=== PATIENT | female | born 1955 | race Caucasian/White ===

== ENCOUNTER 2016-12-25 07:25 | Emergency (ER) | payer OTHER ==
[2016-12-25 07:32] VITALS: TEMP 98.4; O2SAT 94
--- NOTE | 2016-12-25 07:43 | CPEKG ---
Heart Rate: 86 RR Interval: 698 P-R Interval: 176 QRSD Interval: 98 QT Interval: 348 QTC Interval: 417 P [place]: 58 QRS [place]: 56 T Wave [place]: -83 EKG Severity - NORMAL ECG - EKG Impression: SINUS RHYTHM Electronically Signed By: Annabelle Dick 25-Dec-2016 07:49:29
[2016-12-25] MEDS ORDERED: LORazepam 1 MG TAB PO ONE (08:03)
--- NOTE | 2016-12-25 08:08 | EDPHY ---
H & P Stated Complaint: Rapid Heart Beat/ Time Seen by Provider: 12/25/16 07:43 HPI/ROS: CHIEF COMPLAINT: Racing heart HISTORY OF PRESENT ILLNESS: This is a 60-year-old female with a history of hypertension and anxiety who presents to the emergency department after experiencing a racing heartbeat. She is prescribed Ativan 1 mg 3 times daily to use for anxiety and sleep. She receives 90 tablets per month. Her prescription is due to be refilled on the of this month, 4 days hence. She currently has 1 Ativan tablet left and has been taking 0.5 mg daily for at least the past 5 days, trying to stretch out her remaining pills. She admits that she has been taking more than the prescribed dosage. She attributes this to the fact that she was using Benadryl and an Afrin nasal spray to treat allergy symptoms related to her cats. She believes that these medications have made it more difficult her cysts for her to sleep, thus requiring more Ativan. Of note, she was admitted to this hospital almost exactly 1 year ago under similar circumstances. At that time she had an extensive cardiac workup including a normal nuclear stress test. She were Holter monitor after discharge. It was ultimately decided that her symptoms of heart palpitations and chest pressure were secondary to benzodiazepine withdrawal. She did have some ST depression on an initial EKG during that visit. This occurred in the setting of tachycardia in the 120s. She had a coronary angiogram performed about 10 years ago that showed a minimal LA D lesion. She currently takes amlodipine and metoprolol for hypertension. She denies chest pain or shortness of breath. She is not currently experiencing palpitations but felt them in the early hours of the morning and again when she awakened around 6 today. She last took Ativan around 10:00 p.m. last night, 0.5 mg. REVIEW OF SYSTEMS: A ten point review of systems was performed and is negative with the exception of the items mentioned in the HPI. Source: Patient Exam Limitations: No limitations - Personal History Current Tetanus/Diphtheria Vaccine: Yes Current Tetanus Diphtheria and Acellular Pertussis (TDAP): Yes - Medical/Surgical History Hx Asthma: Yes Hx Chronic Respiratory Disease: No Hx Diabetes: No Hx Cardiac Disease: No Hx Renal Disease: No Hx Cirrhosis: No Hx Alcoholism: No Hx HIV/AIDS: No Hx Splenectomy or Spleen Trauma: No Other PMH: 1. Hypertension. 2. Anxiety. 3. Insomnia. 4. Asthma-albuterol p.r.n. 5. Osteoarthritis involving her knees - Social History Smoking Status: Former smoker Drug Use: None Additional Social History: She lives alone. - Physical Exam Exam: General Appearance: Alert. Vital signs reviewed. Blood pressure 181/102 at triage, heart rate 105 at triage. Eyes: Pupils equal and round, no conjunctival injection, no discharge. Anicteric. ENT, Mouth: Mucous membranes are moist, no oropharyngeal erythema or edema. Neck: No lymphadenopathy, supple. No jugular venous distention. Respiratory: Lungs are clear to auscultation; no wheezes, rales, or rhonchi. Cardiovascular: Regular rate and rhythm; no murmur, rub, or gallop. Heart rate mid 80s at the time of my exam. Gastrointestinal: Abdomen is soft and nontender, no masses or organomegaly, bowel sounds normal. Skin: Warm and dry, no rashes on exposed skin, normal color. Back: Nontender to palpation over the thoracolumbar spine. No CVAT. Extremities: No lower extremity edema, no calf tenderness or swelling. Neurological: Alert and oriented. Moving all four extremities easily and equally. Psychiatric: Flat affect. Constitutional: Initial Vital Signs Temperature (C) 36.9 C 12/25/16 07:30 Heart Rate 105 H 12/25/16 07:30 Respiratory Rate 16 12/25/16 07:30 Blood Pressure 181/102 H 12/25/16 07:30 O2 Sat (%) 94 12/25/16 07:30 O2 Delivery Mode Room Air Allergies/Adverse Reactions: acetaminophen [From Percocet] Allergy (Verified 12/25/16 07:30) meperidine HCl [From Demerol] Allergy (Verified 12/31/15 04:00) morphine [Morphine] Allergy (Verified 12/31/15 04:00) oxycodone HCl [From Percocet] Allergy (Verified 12/25/16 07:30) Home Medications: Medication Instructions Recorded Acetaminophen [Tylenol 325mg (*)] 650 mg PO Q6 PRN #0 tab 12/31/15 Albuterol [Proventil Inhaler HFA 2 puffs IH Q2 PRN 12/31/15 (*)] Amitriptyline HCl [Elavil] 50 mg PO HS 12/31/15 Ibuprofen [Motrin (*)] 800 mg PO Q6 12/31/15 LORazepam [Ativan (*)] 1 mg PO Q6 PRN #10 tab 12/31/15 Metoprolol Succinate Xr [Toprol Xl 100 mg PO DAILY 12/31/15 100 mg (*)] amLODIPine BESYLATE [Norvasc 5 mg 5 mg PO DAILY 12/31/15 (*)] LORazepam [Ativan] 1 mg PO TID PRN #11 tab 12/25/16 Medical Decision Making - Diagnostics EKG Interpretation: 12 lead EKG is interpreted in [facility] View by emergency department physician. No acute ischemic changes. ED Course/Re-evaluation: 60-year-old female complaining of palpitations in the setting of markedly decreased dosage of her Ativan. I suspect benzodiazepine withdrawal. She is given 1 mg of Ativan orally in the emergency department. She is not currently experiencing palpitations and denies chest pain or shortness of breath. I spoke with her primary care physician, Dr. Thu Dunlap. She is aware of the fact that the patient has been over using her prescribed Ativan. We both agree that it is appropriate to write a prescription for enough Ativan to get her through until her prescription is refilled on Sunday. This will avoid benzodiazepine withdrawal. Dr. Dunlap will see her in the office. She will address the fact that Ms. Willis has been abusing her Ativan. Differential Diagnosis: I considered a differential diagnosis that includes but is not limited to benzodiazepine withdrawal, benzodiazepine abuse, tachyarrhythmia, dehydration, and drug-seeking. - Data Points Medications Given: Discontinued Medications Lorazepam (Ativan) 1 mg PO EDNOW ONE Stop: 12/25/16 08:04 Last Admin: 12/25/16 08:28 Dose: 1 mg Departure - Departure Disposition: Home, Routine, Self-Care Clinical Impression: Heart palpitations Condition: Good Instructions: Palpitations (ED) Additional Instructions: As you know, your racing heart is likely due to benzodiazepine withdrawal. I am writing a prescription for enough Ativan to get you through until Sunday when you will have your new prescription filled. I have spoken with Dr. Dunlap and she would like you to contact the office and schedule an appointment with her. Referrals: Rosanna Dunlap MD [Primary Care Provider] - As per Instructions Prescriptions: LORazepam [Ativan] 1 mg PO TID PRN #11 tab PRN Reason: Anxiety
[2016-12-25 08:52] VITALS: BP 138/72; PULSE 76; RESP 14
== END 2016-12-25 09:29 | disposition home or self-care (01) ==
DX: R00.2 Palpitations (principal); J45.909 Unspecified asthma, uncomplicated; I10 Essential (primary) hypertension; Z87.891 Personal history of nicotine dependence

== ENCOUNTER 2017-05-18 16:49 | Observation (INO) | payer OTHER ==
--- NOTE | 2017-05-18 17:07 | EDPHY ---
H & P Stated Complaint: cp, sob since yesterday--pt concerned could be related to anxiety HPI/ROS: HPI CHIEF COMPLAINT: Chest pain and shortness of breath HISTORY OF PRESENT ILLNESS: This patient is 61-year-old female, she has significant past medical history for hypertension, reactive airway disease and uses albuterol, significant osteoarthritis of her knees, she presents emergency room with chest pain or shortness of breath. She describes this chest pain is a pressure something sitting on the left side of her chest. She tells me this started around 4:00 a.m. yesterday. It has been persistent however it does wax and wane. She denies any nausea diaphoresis or pleuritic pain. She does get short of breath this. She went saw her primary care doctor today was referred to the emergency room for an abnormal EKG. Upon arrival here in emergency room she does complain of chest pressure 4/10 left-sided. Additionally tells me she short of breath. She does report to me she has no history of cardiac disease however she states she had a cardiac catheterization approximately 10 years ago with some plaque in 1 of her coronaries. Past Medical History: Hypertension, reactive airway disease, osteoarthritis Past Surgical History: Cardiac catheterization 10 years ago Social History: Denies daily use of drugs alcohol tobacco products. Family History: Noncontributory. ROS REVIEW OF SYSTEMS: A comprehensive 10 point review of systems is otherwise negative aside from elements mentioned in the history of present illness. Exam Constitutional appears well nontoxic triage nursing summary reviewed, vital signs reviewed, awake/alert. Eyes normal conjunctivae and sclera, EOMI, PERRLA. HENT normal inspection, atraumatic, moist mucus membranes, no epistaxis, neck supple/ no meningismus, no raccoon eyes. Respiratory clear to auscultation bilaterally, normal breath sounds, no respiratory distress, no wheezing. Cardiovascular rate normal, regular rhythm, no murmur, no edema, distal pulses normal. Gastrointestinal soft, non-tender, no rebound, no guarding, normal bowel sounds, no distension, no pulsatile mass. Genitourinary no CVA tenderness. Musculoskeletal no midline vertebral tenderness, full range of motion, no calf swelling, no tenderness of extremities, no meningismus, good pulses, neurovascularly intact. Skin pink, warm, & dry, no rash, skin atraumatic. Neurologic awake, alert and oriented x 3, AAOx3, moves all 4 extremities equally, motor intact, sensory intact, CN II-XII intact, normal cerebellar, normal vision, normal speech. Psychiatric normal mood/affect. Heme/Lymph/Immune no lymphadenopathy. Differential diagnosis includes but is not limited to: ACS, atypical chest pain , pneumothorax, pneumonia, pulmonary embolism, aortic dissection, congestive heart failure, tumor, musculoskeletal pain, esophageal pain, GERD, peptic ulcer disease, pancreatitis Medical Decision Making: Plan for this patient IV establishment, full-dose aspirin, nitroglycerin to see if this improves her chest pain, full youth nutritional monitor, EKG, rule out acute coronary syndrome. Re-evaluation: EKG interpretation by me on record in [employer] [facility] system. Impression time of EKG 17 11, this is sinus rhythm rate of 76, there abnormal T-wave inversions in V1 V2 V3. Slight ST depression V4 V5 V6. Motion artifact inferior leads. When I compare this EKG to her old EKG dated 12/25/2016 these T-waves are new. Also I compared her 12/31/2015 EKG. New T-wave inversions. 180: This patient was given nitroglycerin. This greatly improved her chest discomfort. Currently this time she has no chest pain. Repeat EKG at this time. EKG interpretation by me on record in [employer] system. Impression the time of EKG 18 16, this is sinus rhythm rate of 77, T-wave abnormalities noted again in V1 V2 V3. ST segment flattening V4 V5 V6. This EKG is obtained after nitroglycerin. It is not a normal EKG. This EKG is done when the patient has no chest pain. Plan for this patient given abnormal EKG and chest pain relieved by nitroglycerin the patient need to be admitted the hospitalist service for further characterization and cardiac chest pain rule out. There is no indication she is having acute STEMI at this time. No indication that she is having acute event. She has an abnormal EKG with chest pain. Relieved by nitro. Troponin is negative. ED x-ray chest one view: Negative for acute cardiopulmonary disease. 1828: Likely discussion with this patient she agrees for hospital admission for chest pain and abnormal EKG. Risk factors for cardiac disease include obesity, hypertension, age, immobility , chest pain relieved by nitroglycerin an abnormal EKG. Source: Patient - Personal History Current Tetanus/Diphtheria Vaccine: Unsure Current Tetanus Diphtheria and Acellular Pertussis (TDAP): Unsure - Medical/Surgical History Hx Asthma: Yes Hx Chronic Respiratory Disease: No Hx Diabetes: No Hx Cardiac Disease: No Hx Renal Disease: No Hx Cirrhosis: No Hx Alcoholism: No Hx HIV/AIDS: No Hx Splenectomy or Spleen Trauma: No Other PMH: 1. Hypertension. 2. Anxiety. 3. Insomnia. 4. Asthma-albuterol p.r.n. 5. Osteoarthritis involving her knees - Social History Smoking Status: Former smoker Constitutional: Initial Vital Signs Temperature (C) 37.1 C 05/18/17 16:56 Heart Rate 76 05/18/17 16:56 Respiratory Rate 16 05/18/17 16:56 Blood Pressure 146/80 H 05/18/17 16:56 O2 Sat (%) 98 05/18/17 16:56 O2 Delivery Mode Room Air Allergies/Adverse Reactions: acetaminophen [From Percocet] Allergy (Verified 12/25/16 07:30) meperidine HCl [From Demerol] Allergy (Verified 12/31/15 04:00) morphine [Morphine] Allergy (Verified 12/31/15 04:00) oxycodone HCl [From Percocet] Allergy (Verified 12/25/16 07:30) Home Medications: Medication Instructions Recorded Albuterol [Proventil Inhaler HFA 2 puffs IH Q2 PRN 12/31/15 (*)] Ibuprofen [Motrin (*)] 800 mg PO Q6 12/31/15 LORazepam [Ativan (*)] 1 mg PO Q6 PRN #10 tab 12/31/15 Metoprolol Succinate Xr [Toprol Xl 100 mg PO DAILY 12/31/15 100 mg (*)] amLODIPine BESYLATE [Norvasc 5 mg 5 mg PO DAILY 12/31/15 (*)] LORazepam [Ativan] 1 mg PO TID PRN #11 tab 12/25/16 Medical Decision Making - Diagnostics Imaging Results: Imaging Impressions Chest X-Ray 05/18/17 17:12 Impression: 1. No acute pulmonary disease. 2. Consider chest two views when the patient's medical condition permits. - Data Points Laboratory Results: Laboratory Results 05/18/17 17:15 05/18/17 17:15 08/11/17 08/11/17 08/11/17 17:15 17:15 17:15 WBC 8.11 10^3/uL 10^3/uL (3.80-9.50) RBC 4.74 10^6/uL 10^6/uL (4.18-5.33) Hgb 14.0 g/dL g/dL (12.6-16.3) Hct 40.0 % % (38.0-47.0) MCV 84.4 fL fL (81.5-99.8) MCH 29.5 pg pg (27.9-34.1) MCHC 35.0 g/dL g/dL (32.4-36.7) RDW 12.5 % % (11.5-15.2) Plt Count 254 10^3/uL 10^3/uL (150-400) MPV 9.9 fL fL (8.7-11.7) Neut % (Auto) 62.1 % % (39.3-74.2) Lymph % (Auto) 28.1 % % (15.0-45.0) Schleicher % (Auto) 7.4 % % (4.5-13.0) Eos % (Auto) 1.8 % % (0.6-7.6) Baso % (Auto) 0.2 % L % (0.3-1.7) Nucleat RBC Rel Count 0.0 % % (0.0-0.2) Absolute Neuts (auto) 5.03 10^3/uL 10^3/uL (1.70-6.50) Absolute Lymphs (auto) 2.28 10^3/uL 10^3/uL (1.00-3.00) Absolute Monos (auto) 0.60 10^3/uL 10^3/uL (0.30-0.80) Absolute Eos (auto) 0.15 10^3/uL 10^3/uL (0.03-0.40) Absolute Basos (auto) 0.02 10^3/uL 10^3/uL (0.02-0.10) Absolute Nucleated RBC 0.00 10^3/uL 10^3/uL (0-0.01) Immature Gran % 0.4 % % (0.0-1.1) Immature Gran # 0.03 10^3/uL 10^3/uL (0.00-0.10) PT 12.7 SEC SEC (12.0-15.0) INR 0.96 (0.83-1.16) APTT 25.9 SEC SEC (23.0-38.0) D-Dimer 0.30 ug/mLFEU ug/mLFEU (0.00-0.50) Sodium 139 mEq/L mEq/L (134-144) Potassium 3.7 mEq/L mEq/L (3.5-5.2) Chloride 104 mEq/L mEq/L (97-110) Carbon Dioxide 19 mEq/l L mEq/l (22-31) Anion Gap 16 mEq/L mEq/L (8-16) BUN 13 mg/dL mg/dL (7-23) Creatinine 0.7 mg/dL mg/dL (0.6-1.0) Estimated GFR > 60 Glucose 102 mg/dL H mg/dL (70-100) Calcium 10.9 mg/dL H mg/dL (8.5-10.4) Phosphorus 3.5 mg/dL mg/dL (2.5-4.5) Magnesium 2.1 mg/dL mg/dL (1.6-2.3) Total Bilirubin 0.7 mg/dL mg/dL (0.1-1.4) Conjugated Bilirubin 0.3 mg/dL mg/dL (0.0-0.5) Unconjugated Bilirubin 0.4 mg/dL mg/dL (0.0-1.1) AST 27 IU/L IU/L (14-46) ALT 41 IU/L IU/L (9-52) Alkaline Phosphatase 122 IU/L IU/L (38-126) Creatine Kinase 115 IU/L IU/L (0-156) CK-MB (CK-2) Fraction 2.45 ng/mL ng/mL (0-3.19) Troponin I < 0.012 ng/mL ng/mL (0-0.034) NT-Pro-B Natriuret Pep 77 pg/mL pg/mL (0-125) Total Protein 8.3 g/dL H g/dL (6.3-8.2) Albumin 5.2 g/dL H g/dL (3.5-5.0) Lipase 126.0 IU/L IU/L (23-300) Medications Given: Discontinued Medications Aspirin (Aspirin) 324 mg PO EDNOW ONE Stop: 05/18/17 17:13 Last Admin: 05/18/17 17:24 Dose: 324 mg Sodium Chloride (Ns) 1,000 mls @ 0 mls/hr IV EDNOW ONE; Wide Open PRN Reason: Protocol Stop: 05/18/17 17:13 Last Admin: 05/18/17 17:25 Dose: 1,000 mls Lorazepam (Ativan) 1 mg PO ONCE ONE Stop: 05/18/17 17:47 Last Admin: 05/18/17 17:51 Dose: 1 mg Nitroglycerin (Nitrostat) 0.4 mg SL EDNOW ONE Stop: 05/18/17 17:20 Last Admin: 05/18/17 17:24 Dose: 0.4 mg Departure - Departure Disposition: [facility] Inpatient Acute Clinical Impression: Chest pain Qualifiers: Chest pain type: unspecified Qualified Code(s): R07.9 - Chest pain, unspecified Condition: Fair
[2017-05-18] MEDS ORDERED: ASPIRIN 81 MG CHEWABLE TAB PO ONE (17:12)
[2017-05-18] MEDS ORDERED: NS 1,000 ML IV ONE (17:12)
--- NOTE | 2017-05-18 17:13 | CPEKG ---
Heart Rate: 76 RR Interval: 789 P-R Interval: 166 QRSD Interval: 98 QT Interval: 368 QTC Interval: 414 P [place]: 49 QRS [place]: 54 T Wave [place]: -36 EKG Severity - NORMAL ECG - EKG Impression: SINUS RHYTHM Electronically Signed By: Miguel Petty 18-May-2017 19:10:27
[2017-05-18] MEDS ORDERED: NITROGLYCERIN 0.4 MG BTL SL ONE (17:19)
[2017-05-18 17:32] LABS: % IMMATURE GRANULYOCYTES 0.4 % (0.0-1.1); ABSOLUTE IMMATURE GRANULOCYTES 0.03 10^3/uL (0.00-0.10); ADD DIFF? NO; ADD MORPH? NO; ADD SCAN? NO; ATYPICAL LYMPHOCYTE FLAG 0 (0-99); FRAGMENT RBC FLAG 0 (0-99); LEFT SHIFT FLG 0 (0-99); LIPEMIA HEMOLYSIS FLAG 90 (0-99); MEAN CELL HEMOGLOBIN 29.5 pg (27.9-34.1); MEAN CELL VOLUME 84.4 fL (81.5-99.8); MEAN PLATELET VOLUME 9.9 fL (8.7-11.7); PLATELET CLUMPS FLAG 0 (0-99); PLATELET COUNT 254 10^3/uL (150-400); RED BLOOD CELL COUNT 4.74 10^6/uL (4.18-5.33); RED CELL DISTRIBUTION WIDTH 12.5 % (11.5-15.2)
[2017-05-18] MEDS ORDERED: LORazepam 1 MG TAB PO ONE (17:46)
[2017-05-18 17:48] LABS: INR 0.96 (0.83-1.16); PROTIME(PATIENT) 12.7 SEC (12.0-15.0)
[2017-05-18 17:49] LABS: APTT 25.9 SEC (23.0-38.0)
[2017-05-18 17:56] LABS: ALANINE AMINOTRANSFERASE 41 IU/L (9-52); ALBUMIN 5.2 g/dL (3.5-5.0); ALKALINE PHOSPHATASE 122 IU/L (38-126); ANION GAP 16 mEq/L (8-16); ASPARTATE AMINOTRANSFERASE 27 IU/L (14-46); BILIRUBIN,TOTAL 0.7 mg/dL (0.1-1.4); BILIRUBIN-CONJUGATED 0.3 mg/dL (0.0-0.5); BILIRUBIN-UNCONJUGATED 0.4 mg/dL (0.0-1.1); CALCIUM 10.9 mg/dL (8.5-10.4); CARBON DIOXIDE 19 mEq/l (22-31); CHLORIDE 104 mEq/L (97-110); CREATININE 0.7 mg/dL (0.6-1.0); GLOMERULAR FILTRATION RATE > 60; GLUCOSE 102 mg/dL (70-100); MAGNESIUM 2.1 mg/dL (1.6-2.3); POTASSIUM 3.7 mEq/L (3.5-5.2); SODIUM 139 mEq/L (134-144); TOTAL PROTEIN 8.3 g/dL (6.3-8.2)
[2017-05-18 18:07] LABS: CREATINE KINASE-MB FRACTION 2.45 ng/mL (0-3.19); TROPONIN I < 0.012 ng/mL (0-0.034)
--- NOTE | 2017-05-18 18:19 | CPEKG ---
Heart Rate: 77 RR Interval: 779 P-R Interval: 196 QRSD Interval: 98 QT Interval: 380 QTC Interval: 431 P [place]: 51 QRS [place]: 48 T Wave [place]: -58 EKG Severity - NORMAL ECG - EKG Impression: SINUS RHYTHM Electronically Signed By: Miguel Petty 18-May-2017 19:10:27
[2017-05-18] MEDS ORDERED: ALBUTEROL 3 ML DEYVIAL IH PRN (20:00)
[2017-05-18] MEDS ORDERED: ONDANSETRON 4 MG/2 ML VIAL IVP PRN (20:00)
[2017-05-18] MEDS ORDERED: ONDANSETRON DISINTEGRATING 4 MG TAB PO PRN (20:00)
[2017-05-18] MEDS ORDERED: ACETAMINOPHEN 325 MG TAB PO PRN (20:00)
[2017-05-18] MEDS ORDERED: oxyCODONE IR 5 MG TAB PO PRN (20:00)
[2017-05-18] MEDS ORDERED: LORazepam 1 MG TAB PO PRN (20:02)
[2017-05-18] MEDS ORDERED: ALBUTEROL 200 PUFFS/18 GM MDI IH PRN (20:02)
[2017-05-18] MEDS: IBUPROFEN 800 MG TAB PO SCH (22:35)
--- NOTE | 2017-05-18 22:38 | GHP ---
[f rep st] HISTORY AND PHYSICAL DATE OF ADMISSION: 05/18/2017 CHIEF COMPLAINT: Chest pain. HISTORY: This is a 61-year-old female, past medical history that includes hypertension, severe anxi ety and reactive airways disease, presenting with left-sided chest pain that has been present since 4 AM yesterday. At the time of my evaluation, patient states she is "drugged," very sleepy and is h aving difficulty answering any questions. She asked me if we can talk tomorrow. Given her somnolen ce and her reluctance to participate in this history, the majority of history is obtained by wendie wood and discussion with ER physician. Apparently patient had been complaining of chest pain and p ressure on the left side of the chest that waxes and wanes and has no associated symptoms, including nausea or diaphoresis. Apparently she did have some shortness of breath. On review of her chart, she has had similar issues in the past and did have a nuclear stress test in December which was normal. PAST MEDICAL HISTORY: 1. Reactive airway disease. 2. Hypertension. 3. Anxiety with benzodiazepine dependence and prior issue of benzo withdrawal. 4. Osteoarthritis bilateral knees. 5. Nonobstructive coronary artery disease. 6. Diastolic dysfunction. 7. Hyperlipidemia. PAST SURGICAL HISTORY: Includes remote cardiac catheterization. SOCIAL HISTORY: Per chart review, patient is , is a nonsmoker, nondrinker, non drug user. FAMILY HISTORY: This was reviewed and is noncontributory. REVIEW OF SYSTEMS: 10-point review of systems obtained and negative, except as per HPI. It should be noted that this was limited by patient's reluctance to talk. MEDICATIONS: Include. 1. Metoprolol. 2. Ibuprofen. 3. Albuterol. 4. Lorazepam. 5. Amlodipine. ALLERGIES: Include oxycodone, morphine, meperidine. PHYSICAL EXAMINATION: VITAL SIGNS: Blood pressure 141/75, heart rate 79, respiratory rate 16, O2 s ats 94% on room air. Temperature is 36.7. GENERAL APPEARANCE: This is a somnolent female. She is arousable, but minimally interactive. EYES: Anicteric. HENT: Oropharynx clear. CARDIOVASCULAR: Regular rate and rhythm. No murmurs, rubs, or gallops. PULMONARY: CTA bilaterally. Normal work of breathing. ABDOMEN: Obese, soft, nontender. EXTREMITIES: No clubbing, cyanosis, or edema. S KIN: Warm, dry, well perfused. NEUROLOGIC/PSYCHIATRIC: Again, patient quite somnolent and states she is drugged and very sleepy. She is arousable, but very reluctant to participate in any sort of conversation. LABORATORY DATA: Labs reviewed. CBC is completely within normal limits. Coags and D-dimer are normal. Chemistry is notable for a b icarb of 19 with an anion gap of 16, glucose of 102, otherwise unremarkable. Chest x-ray, personally reviewed and interpreted, shows no acute disease. EKG, personally reviewed and interpreted, there is T-wave inversions V1, V2, V3 that are slightly mo re pronounced than prior. ASSESSMENT/PLAN: This is a 61-year-old female, past medical history of hypertension and anxiety, pr esenting with chest pain. 1. Chest pain. I was essentially unable to obtain a history from her; however, per report to the E R, this does sound to be atypical and has been present for greater than 24 hours without any enzyme elevation. Plan will be to monitor on telemetry with serial troponins and serial EKGs. We will obt ain a stress test in the morning. 2. Anxiety. The patient was given some Ativan in the Emergency Department and is now quite somnole nt. It does sound as if she has had many years of benzodiazepine dependence and has had issues with withdrawal in the past. Will have caution with benzos during this hospitalization. 3. Hypertension. Will continue her amlodipine and metoprolol. Blood pressure has been reasonable since admission. 4. Reactive airways disease without evidence of acute exacerbation. We will continue p.r.n. albute rol. 5. Chronic diastolic dysfunction without any evidence of decompensation. She appears euvolemic. W ill monitor. 6. Disposition. Observation status. I suspect she will need less than 48 hours stay for evaluatio n and management of above. 7. Patient is new to my care. Old records reviewed. Summary is as per HPI and past medical histor y. Care plan reviewed with ER physician, including plans for stress test in the morning. /[id number]/MODL
[2017-05-19 05:00] LABS: ANION GAP 11 mEq/L (8-16); CALCIUM 9.6 mg/dL (8.5-10.4); CARBON DIOXIDE 21 mEq/l (22-31); CHLORIDE 108 mEq/L (97-110); CREATININE 0.6 mg/dL (0.6-1.0); GLOMERULAR FILTRATION RATE > 60; GLUCOSE 76 mg/dL (70-100); POTASSIUM 3.5 mEq/L (3.5-5.2); SODIUM 140 mEq/L (134-144)
[2017-05-19 05:10] LABS: TROPONIN I < 0.012 ng/mL (0-0.034)
--- NOTE | 2017-05-19 06:28 | CPEKG ---
Heart Rate: 71 RR Interval: 845 P-R Interval: 173 QRSD Interval: 96 QT Interval: 380 QTC Interval: 413 P [place]: 71 QRS [place]: 61 T Wave [place]: -34 EKG Severity - OTHERWISE NORMAL ECG - EKG Impression: SINUS RHYTHM EKG Impression: VENTRICULAR PREMATURE COMPLEX Electronically Signed By: Cynthia Olmedo 21-May-2017 05:27:12
[2017-05-19] MEDS ORDERED: METOPROLOL SUCCINATE XR 100 MG TAB PO SCH (09:00)
[2017-05-19] MEDS: IBUPROFEN 800 MG TAB PO SCH (09:39)
[2017-05-19] MEDS ORDERED: REGADENOSON 0.4 MG/5 ML SYR IVP ONE (10:05)
--- NOTE | 2017-05-19 11:53 | CPR ---
[f rep st] NONINVASIVE CARDIAC PROCEDURE REPORT DATE OF PROCEDURE: 05/19/2017 PROCEDURE: Lexiscan nuclear stress test. INDICATION: The patient is a 61-year-old female, who presented to the hospital with complaints of s hortness of breath, chest discomfort, and abnormal EKG. Her risk factors for coronary artery diseas e include hypertension and prior tobacco use. She quit smoking 30 years ago. PROCEDURE IN DETAIL: Consent was obtained. The patient was placed on continuous telemetry. Her re sting EKG revealed normal sinus rhythm with heart rate of 70, SD interval 196, QRS duration of 88, a nd a QTc of 389. She has diffuse nonspecific ST-T wave changes. The patient was infused with Alicia can and complained of shortness of breath. She remained in normal sinus rhythm, but her heart rate did increase slightly to 97 beats per minute with the infusion. Her nonspecific ST-T wave changes w ere persistent throughout the study. Her blood pressure at rest was 128/70 and increased slightly w ith the infusion, and then returned to baseline. PLAN: Await nuclear images. /[id number]/MODL
[2017-05-19 11:59] VITALS: BP 129/77; PULSE 66; RESP 19; TEMP 98.5; O2SAT 98
--- NOTE | 2017-05-19 17:15 | GDS ---
[f rep st] DISCHARGE SUMMARY DISCHARGE DIAGNOSES: 1. Chest pain, thought nonischemic. 2. Reactive airways disease. 3. Hypertension. 4. Anxiety with benzodiazepine dependence. 5. Osteoarthritis. 6. Nonobstructive coronary disease. 7. Diastolic heart dysfunction. 8. Hyperlipidemia. HISTORY OF PRESENT ILLNESS: A 61-year-old female with multiple medical comorbidities, presenting wi th chest pain. For details of the patient's initial presentation, please see the history and physic al dated 05/18/2017. CONSULTATIVE SERVICES: Cardiology. PROCEDURES: Myocardial perfusion stress testing, which was negative for any inducible ischemia. HOSPITAL COURSE: Chest pain. The patient's symptoms did resolve. She ruled out with serial tropon ins and EKGs. The patient was taken for cardiac stress testing, which was negative for any inducibl e ischemia. The patient will resume her outpatient regimen, and follow with her outpatient provider post disposition. FOLLOWUP APPOINTMENTS: [facility]. PENDING STUDIES: At the time of this dictation none. TIME SPENT: I spent greater than 30 minutes in the planning and coordination of this discharge. /[id number]/MODL
[2017-05-19] MEDS ORDERED: METOPROLOL SUCCINATE 100 MG PO SCH (21:00)
== END 2017-05-19 13:15 | disposition home or self-care (01) ==
LOC: F2W 19:35
PROVIDERS: ADMIT Internal Medicine; ATTEND Internal Medicine
DX: R07.9 Chest pain, unspecified (principal); J45.909 Unspecified asthma, uncomplicated; F13.20 Sedative, hypnotic or anxiolytic dependence, uncomplicated; M19.90 Unspecified osteoarthritis, unspecified site; I25.10 Atherosclerotic heart disease of native coronary artery without angina pectoris; I11.9 Hypertensive heart disease without heart failure
CPT/HCPCS: A9500; G0378; J2785

== ENCOUNTER → 2017-07-23 | Outpatient (CLI) | payer OTHER | LOC: FIMAGING 11:41 | PROVIDERS: ATTEND Internal Medicine | DX: Z12.31 Encounter for screening mammogram for malignant neoplasm of breast (principal) | CPT/HCPCS: G0202 ==

== ENCOUNTER 2018-02-13 14:03 | Emergency (ER) | payer OTHER ==
--- NOTE | 2018-02-13 14:45 | EDPHY ---
H & P Stated Complaint: co of nausea x 3 days, anxiety, and intermittant chest pain Time Seen by Provider: 02/13/18 14:41 HPI/ROS: CHIEF COMPLAINT: Nausea, anxiety, chest discomfort HISTORY OF PRESENT ILLNESS: The patient presents the ED with several days of nausea, worsening anxiety and chest discomfort. The patient has a history of chronic anxiety and is prescribed up to 1.5 mg of Ativan daily. She is unable to quantify how much she has been taking but has run out of her prescription prior to its expiration date. The patient presents to the ED with complaints of tremor, dyspnea and weakness. The patient denies any asymmetric calf pain or swelling. The patient denies fever, cough or congestion. The patient was hospitalized for chest pain last year and had a unremarkable nuclear stress test. REVIEW OF SYSTEMS: A comprehensive 10 point review of systems is otherwise negative aside from elements mentioned in the history of present illness. Source: Patient Exam Limitations: No limitations - Medical/Surgical History Hx Asthma: Yes Hx Chronic Respiratory Disease: No Hx Diabetes: No Hx Cardiac Disease: No Hx Renal Disease: No Hx Cirrhosis: No Hx Alcoholism: No Hx HIV/AIDS: No Hx Splenectomy or Spleen Trauma: No Other PMH: 1. Hypertension. 2. Anxiety. 3. Insomnia. 4. Asthma-albuterol p.r.n. 5. Osteoarthritis involving her knees - Social History Smoking Status: Former smoker - Physical Exam Exam: General Appearance: Alert, anxious Eyes: Pupils equal and round no pallor or injection ENT, Mouth: Mucous membranes moist Respiratory: There are no retractions, lungs are clear to auscultation Cardiovascular: Regular rate and rhythm Gastrointestinal: Abdomen is soft and nontender, no masses, bowel sounds normal Neurological: 5/5 strength all 4 extremities Skin: Warm and dry, no rashes Musculoskeletal: Neck is supple nontender Extremities: symmetrical, full range of motion Constitutional: Initial Vital Signs Temperature (C) 36.6 C 02/13/18 14:11 Heart Rate 94 02/13/18 14:11 Respiratory Rate 18 02/13/18 14:11 Blood Pressure 175/105 H 02/13/18 14:11 O2 Sat (%) 94 02/13/18 14:11 O2 Delivery Mode Room Air Allergies/Adverse Reactions: meperidine HCl [From Demerol] Allergy (Verified 02/13/18 14:05) morphine [Morphine] Allergy (Verified 02/13/18 14:05) oxycodone HCl [From Percocet] Allergy (Verified 02/13/18 14:05) Home Medications: Medication Instructions Recorded Albuterol [Proventil Inhaler HFA 2 puffs IH Q2 PRN 12/31/15 (*)] Ibuprofen [Motrin (*)] 800 mg PO TID 12/31/15 LORazepam [Ativan (*)] 2.5 mg PO HS PRN 05/18/17 amLODIPine BESYLATE [Norvasc 10 mg 10 mg PO HS 05/18/17 (*)] Metoprolol Succinate [Toprol Xl 100 mg PO BID 05/19/17 200 mg] LORazepam [Ativan] 1 mg PO DAILY PRN #10 tab 02/13/18 Medical Decision Making - Diagnostics EKG Interpretation: EKG: Complete interpretation has been separately recorded in the [employer] archive. Summary impression: Sinus, rate 94 ED Course/Re-evaluation: The patient presents to the ED with tremor, dyspnea and chest pain in the setting of likely benzodiazepine withdrawal. The patient is noted to be in a sinus rhythm. She does have ST segment depression which is unchanged from her prior EKG. The patient was given the 1 mg oral Ativan dose in the emergency department. She will be given a refill of 1 mg Ativan #10. The patient is advised to follow up with her primary care provider as scheduled. Differential Diagnosis: Differential diagnosis considered includes arrhythmia, Ativan withdrawal, dehydration - Data Points Medications Given: Discontinued Medications Lorazepam (Ativan) 1 mg PO EDNOW ONE Stop: 02/13/18 15:03 Last Admin: 02/13/18 15:46 Dose: 1 mg Departure - Departure Disposition: Home, Routine, Self-Care Clinical Impression: Anxiety, Dyspnea, Benzodiazepine withdrawal Condition: Good Instructions: Anxiety (ED) Additional Instructions: 1. Please review your Ativan prescription with Dr. Dunlap 2. You have been provided a short course of Ativan. Referrals: Rosanna Dunlap MD [Primary Care Provider] - As per Instructions
--- NOTE | 2018-02-13 14:59 | CPEKG ---
Heart Rate: 94 RR Interval: 638 QRSD Interval: 90 QT Interval: 336 QTC Interval: 421 QRS Mes[place]: 59 T Wave [place]: 266 EKG Severity - ABNORMAL ECG - EKG Impression: SINUS RHYTHM Electronically Signed By: Tom Lin 13-Feb-2018 15:55:28
[2018-02-13] MEDS ORDERED: LORazepam 1 MG TAB PO ONE (15:02)
[2018-02-13 16:42] VITALS: BP 153/111
== END 2018-02-13 16:30 | disposition home or self-care (01) ==
DX: F41.9 Anxiety disorder, unspecified (principal); R06.00 Dyspnea, unspecified; F13.239 Sedative, hypnotic or anxiolytic dependence with withdrawal, unspecified; I10 Essential (primary) hypertension; J45.909 Unspecified asthma, uncomplicated; Z87.891 Personal history of nicotine dependence

== ENCOUNTER 2018-05-04 09:15 | Emergency (ER) | payer OTHER ==
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
[2018-05-04 11:10] VITALS: BP 133/79
== END 2018-05-04 11:29 | disposition home or self-care (01) ==
PROC: 0PSJXZZ Reposition Left Radius, External Approach (ICD-10-PCS; principal; 2018-05-04)
DX: S52.532A Colles' fracture of left radius, initial encounter for closed fracture (principal); J45.909 Unspecified asthma, uncomplicated; I10 Essential (primary) hypertension; Z87.891 Personal history of nicotine dependence; V18.4XXA Pedal cycle driver injured in noncollision transport accident in traffic accident, initial encounter; Y92.410 Unspecified street and highway as the place of occurrence of the external cause; Y99.8 Other external cause status; Y93.89 Activity, other specified

== ENCOUNTER → 2018-09-26 | Outpatient (CLI) | payer OTHER | LOC: FIMAGING 13:13 | PROVIDERS: ATTEND Internal Medicine | DX: Z12.31 Encounter for screening mammogram for malignant neoplasm of breast (principal) ==